=== PATIENT | female | born 1990 | race African-American/Black ===

== ENCOUNTER 2023-07-20 23:22 | Emergency (ER) | payer MEDICAID ==
[~2023-07-20] VITALS: Ht 170.2 cm; Wt 56.0 kg
[2023-07-20 23:34] VITALS: BP 126/84; RESP 18; TEMP 98.1; O2SAT 98
[2023-07-21 00:17] VITALS: PULSE 64
[2023-07-21] MEDS ORDERED: NAPR-1176 MT (01:33)
[2023-07-21] MEDS ORDERED: KETOROLAC 30MG/ML VIAL IM ONE (01:45)
== END 2023-07-21 02:00 | disposition home or self-care (01) ==
LOC: EDBD 23:22 → ER 23:22
DX: M25.571 Pain in right ankle and joints of right foot (principal); Z90.49 Acquired absence of other specified parts of digestive tract; Z98.890 Other specified postprocedural states
CPT/HCPCS: 99284; 73600; 73620; J1885; Z7610